=== PATIENT | male | born 1980 | race Asian ===

== ENCOUNTER 2018-04-06 11:23 | Emergency (ER) | payer OTHER ==
--- NOTE | 2018-04-06 12:02 | EDPHY ---
H & P Stated Complaint: Chest tightness/SOB Time Seen by Provider: 04/06/18 11:37 HPI/ROS: CHIEF COMPLAINT: Chest tightness and dyspnea HISTORY OF PRESENT ILLNESS: The patient presents the ED with 2 weeks of intermittent dyspnea and several days of increasing chest tightness. The patient denies fever, cough or congestion. The patient reports he has episodic symptoms like this occasionally each year. This year it has been much more severe. The patient does report he runs frequently without symptoms of chest pain or shortness of breath. The patient denies any asymmetric calf pain or swelling. The patient does not smoke or drink. The patient reports no significant family history of coronary artery disease. The patient was referred to the ED for further evaluation. The patient last experienced chest pressure 8:00 a.m. this morning which lasted until 11:00 a.m.. The patient states that this was not changed with position. REVIEW OF SYSTEMS: A comprehensive 10 point review of systems is otherwise negative aside from elements mentioned in the history of present illness. Source: Patient Exam Limitations: No limitations - Personal History Current Tetanus/Diphtheria Vaccine: Yes - Medical/Surgical History Hx Asthma: No Hx Chronic Respiratory Disease: No Hx Diabetes: No Hx Cardiac Disease: No Hx Renal Disease: No Hx Cirrhosis: No Hx Alcoholism: No Other PMH: DENIES MED/SURG HX - Social History Smoking Status: Never smoked - Physical Exam Exam: General Appearance: Alert, no distress Eyes: Pupils equal and round no pallor or injection ENT, Mouth: Mucous membranes moist Respiratory: There are no retractions, lungs are clear to auscultation Cardiovascular: Regular rate and rhythm Gastrointestinal: Abdomen is soft and nontender, no masses, bowel sounds normal Neurological: A&O, normal motor function, normal sensory exam, normal cranial nerves Skin: Warm and dry, no rashes Musculoskeletal: Neck is supple nontender Extremities: symmetrical, full range of motion Psychiatric: Patient is oriented X 3, there is no agitation Constitutional: Initial Vital Signs Temperature (C) 36.7 C 04/06/18 11:26 Heart Rate 90 04/06/18 11:26 Respiratory Rate 20 04/06/18 11:26 Blood Pressure 131/78 H 04/06/18 11:26 O2 Sat (%) 97 04/06/18 11:26 O2 Delivery Mode Room Air Allergies/Adverse Reactions: No Known Allergies Allergy (Unverified 04/06/18 11:28) Home Medications: Medication Instructions Recorded Ciprofloxacin [Cipro 500 mg] 500 mg PO BID #14 tab 02/17/15 Medical Decision Making - Diagnostics EKG Interpretation: EKG: Complete interpretation has been separately recorded in the [facility] archive. Summary impression: Sinus rhythm, right axis deviation, no ischemic changes noted Imaging Results: EXAMINATION: PA AND LATERAL VIEWS OF THE CHEST HISTORY: Shortness of breath FINDINGS: The cardiomediastinal silhouette is within normal limits. The lungs are clear. There is no pleural effusion or pneumothorax. No acute osseous abnormality. IMPRESSION: No acute cardiopulmonary process ED Course/Re-evaluation: The patient has no risk factors for coronary artery disease and presents to the ED with several weeks of dyspnea and nonexertional chest pain. Patient's EKG demonstrates no evidence of ischemia. I did review his outpatient chest x-ray which demonstrated no evidence of acute disease. The patient has no significant wheezing noted on exam here today. Is certainly is possible the patient is experiencing some bronchospasm. I will give the patient a prescription for an albuterol inhaler. I have asked the patient to follow up with our on-call medical case manager for further workup including consideration of a treadmill stress test. The patient has been advised to return to the ED for markedly worsening symptoms or other concerns. Differential Diagnosis: Differential diagnosis considered includes asthma, bronchitis, pneumonia, pneumothorax, pericarditis, pulmonary embolism - Data Points Laboratory Results: Laboratory Results 04/06/18 12:15 04/06/18 12:00 04/06/18 04/06/18 04/06/18 12:15 12:00 11:48 WBC 4.74 10^3/uL 10^3/uL (3.80-9.50) RBC 5.06 10^6/uL 10^6/uL (4.40-6.38) Hgb 15.4 g/dL g/dL (13.7-17.5) POC Hgb 16.0 gm/dL gm/dL (13.7-17.5) Hct 43.3 % % (40.0-51.0) POC Hct 47 % % (40-51) MCV 85.6 fL fL (81.5-99.8) MCH 30.4 pg pg (27.9-34.1) MCHC 35.6 g/dL g/dL (32.4-36.7) RDW 12.2 % % (11.5-15.2) Plt Count 166 10^3/uL 10^3/uL (150-400) MPV 10.8 fL fL (8.7-11.7) Neut % (Auto) 62.9 % % (39.3-74.2) Lymph % (Auto) 27.0 % % (15.0-45.0) Griggs % (Auto) 7.6 % % (4.5-13.0) Eos % (Auto) 1.5 % % (0.6-7.6) Baso % (Auto) 0.8 % % (0.3-1.7) Nucleat RBC Rel Count 0.0 % % (0.0-0.2) Absolute Neuts (auto) 2.98 10^3/uL 10^3/uL (1.70-6.50) Absolute Lymphs (auto) 1.28 10^3/uL 10^3/uL (1.00-3.00) Absolute Monos (auto) 0.36 10^3/uL 10^3/uL (0.30-0.80) Absolute Eos (auto) 0.07 10^3/uL 10^3/uL (0.03-0.40) Absolute Basos (auto) 0.04 10^3/uL 10^3/uL (0.02-0.10) Absolute Nucleated RBC 0.00 10^3/uL 10^3/uL (0-0.01) Immature Gran % 0.2 % % (0.0-1.1) Immature Gran # 0.01 10^3/uL 10^3/uL (0.00-0.10) D-Dimer POC Sodium 142 mEq/L mEq/L (135-145) Sodium REJ POC Potassium 3.8 mEq/L mEq/L (3.3-5.0) Potassium REJ POC Chloride 106 mEq/L mEq/L (97-110) Chloride REJ Carbon Dioxide REJ Anion Gap REJ POC BUN 18 mg/dL mg/dL (7-23) BUN REJ Creatinine REJ POC Creatinine 0.9 mg/dL mg/dL (0.7-1.3) Estimated GFR REJ Glucose REJ POC Glucose 90 mg/dL mg/dL (70-100) Calcium REJ POC Troponin I Troponin I REJ 04/06/18 04/06/18 11:45 11:42 WBC RBC Hgb POC Hgb Hct POC Hct MCV MCH MCHC RDW Plt Count MPV Neut % (Auto) Lymph % (Auto) Griggs % (Auto) Eos % (Auto) Baso % (Auto) Nucleat RBC Rel Count Absolute Neuts (auto) Absolute Lymphs (auto) Absolute Monos (auto) Absolute Eos (auto) Absolute Basos (auto) Absolute Nucleated RBC Immature Gran % Immature Gran # D-Dimer < 0.27 ug/mLFEU ug/mLFEU (0.00-0.50) POC Sodium Sodium POC Potassium Potassium POC Chloride Chloride Carbon Dioxide Anion Gap POC BUN BUN Creatinine POC Creatinine Estimated GFR Glucose POC Glucose Calcium POC Troponin I 0.01 ng/mL ng/mL (0.00-0.08) Troponin I Point of Care Test Results: Chemistry 04/06/18 04/06/18 11:48 11:45 POC Sodium 142 mEq/L mEq/L (135-145) POC Potassium 3.8 mEq/L mEq/L (3.3-5.0) POC Chloride 106 mEq/L mEq/L (97-110) POC BUN 18 mg/dL mg/dL (7-23) POC Creatinine 0.9 mg/dL mg/dL (0.7-1.3) POC Glucose 90 mg/dL mg/dL (70-100) POC Troponin I 0.01 ng/mL ng/mL (0.00-0.08) ISTAT H&H 04/06/18 11:48 POC Hgb 16.0 gm/dL gm/dL (13.7-17.5) POC Hct 47 % % (40-51) Departure - Departure Disposition: Home, Routine, Self-Care Clinical Impression: Chest pain Condition: Good Instructions: Chest Pain (ED) Additional Instructions: 1. Please use albuterol inhaler up to every 2 hr as needed for shortness of breath. 2. Please return to the ED immediately for any worsening chest pain or difficulty breathing. 1. Based upon the testing done in the Emergency Department today we see no evidence of a heart attack. 2. We are unable to fully exclude coronary artery disease based upon the testing available in the Emergency Department. 3. For this reason, we would like you to be seen by cardiology for consideration of additional testing within the next 3 days. 4. Please contact the medical case manager you have been referred to schedule this appointment as soon as possible. Their offices are typically open from 8:30am- 5pm M-F. 5. Please return to the Emergency Department immediately for any recurrent chest pain, difficulty breathing or other concerns. Referrals: MARCO A PADILLA [Primary Care Provider] - As per Instructions Jhonatan Plascencia MD [Medical Doctor] - As per Instructions
--- NOTE | 2018-04-06 12:03 | CPEKG ---
Test Reason : OPEN Blood Pressure : / mmHG Vent. Rate : 070 BPM Atrial Rate : 069 BPM P-R Int : 145 ms QRS Dur : 105 ms QT Int : 393 ms P-R-T Axes : 073 262 070 degrees QTc Int : 425 ms Sinus rhythm Right axis Consider right ventricular hypertrophy Confirmed by Rahul Gonzalez ([id number]) on 04/06/2018 12:02:53 PM Referred By: Confirmed By:Rahul Gonzalez
[2018-04-06 12:32] LABS: PLATELET COUNT 166 10^3/uL (150-400)
[2018-04-06 13:16] VITALS: BP 118/70
== END 2018-04-06 13:16 | disposition home or self-care (01) ==
DX: R07.9 Chest pain, unspecified (principal); R06.02 Shortness of breath
CPT/HCPCS: 82435-PO; 82565-PO; 82947-PO; 84132-PO; 84295-PO; 84484-PO; 84520-PO; 85014-PO